=== PATIENT | male | born 1955 | race Caucasian/White ===

== ENCOUNTER → 2024-10-24 | Outpatient (CLI) | payer BC | LOC: M PLARAD 07:27 | PROVIDERS: ATTEND Internal Medicine | DX: C85.19 Unspecified B-cell lymphoma, extranodal and solid organ sites (principal) | CPT/HCPCS: 78815; A9552 ==

== ENCOUNTER → 2025-02-26 | Outpatient (CLI) | payer BC ==
[~2025-02-26] MED LIST: ATOR1TAB19 PO; D3 H10002 PO; ISOVUE-370 76% 100 ML VIAL As Ordered ONE; LISI10TA22 PO; ONDA-84 PO; PROC10TA5 PO
== END ==
LOC: M RAD 13:03
PROVIDERS: ATTEND Internal Medicine Medical Oncology
DX: C83.10 Mantle cell lymphoma, unspecified site (principal); N28.1 Cyst of kidney, acquired; N40.0 Benign prostatic hyperplasia without lower urinary tract symptoms; D17.5 Benign lipomatous neoplasm of intra-abdominal organs
CPT/HCPCS: 71260; 74177; Q9967